=== PATIENT | male | born 1995 | race Caucasian/White ===

== ENCOUNTER 2017-02-25 21:11 | Emergency (ER) | payer BC ==
[~2017-02-25] VITALS: Ht 165.1 cm; Wt 66.0 kg
[2017-02-25 21:22] VITALS: BP 145/87; TEMP 36.6; Ht 165.1 cm; Wt 66.0 kg
[2017-02-25] MEDS ORDERED: MOME100A INH (21:40)
--- NOTE | 2017-02-25 22:19 | DIAGNOSTIC IMAGING REPORT ---
LEFT ANKLE 3 VIEWS CLINICAL HISTORY: Fall with left ankle injury. FINDINGS: 3 views of left ankle are obtained. No prior studies are available for comparison at the time of dictation. The skeletal structures are well mineralized. No fracture is seen. The ankle mortise is intact. There is no joint effusion. Mild soft tissue swelling is seen anteriorly. IMPRESSION: Mild soft tissues swelling with no radiographic evidence of left ankle fracture. Electronically signed by: Amado Hutton M.D. 02/25/2017 10:17 PM Dictated Date/Time: 02/25/2017 10:16 PM
--- NOTE | 2017-02-25 22:19 | DIAGNOSTIC IMAGING REPORT ---
LEFT FOOT 3 VIEWS CLINICAL HISTORY: Fall with left foot injury. FINDINGS: 3 views of left foot are obtained. No prior studies are available for comparison at the time of dictation. The skeletal structures are well mineralized. No fracture is seen. The joint spaces of the foot are well-maintained. Mild soft tissue swelling is noted along the dorsal aspect of the foot. IMPRESSION: Mild soft tissue swelling with no radiographic evidence of left foot fracture. Electronically signed by: Amado Hutton M.D. 02/25/2017 10:17 PM Dictated Date/Time: 02/25/2017 10:15 PM
[2017-02-25 22:45] VITALS: PULSE 75; O2SAT 100
--- NOTE | 2017-02-25 23:14 | EMERGENCY ROOM VISIT NOTE ---
ED Visit Note First contact with patient: 21:32 CHIEF COMPLAINT: Ankle pain HISTORY OF PRESENT ILLNESS: This 21-year-old male patient presents to the emergency department after sustaining an injury to the left ankle and foot with a twisting, inversion motion that occurred while running earlier this afternoon. The patient complains of pain along the outside of the ankle. The patient has mild pain of the foot. The patient rates the pain as dull and 6/ 10. The patient is not comfortably able to bear weight on the foot. Constant pain, worse with movement, weight bearing, and the dependent position. No knee pain, the patient is able to move their toes. No numbness or weakness of the foot, no laceration. The patient has not had a previous fracture to this ankle. The patient has taken ibuprofen for the pain. The patient denies any other injury. REVIEW OF SYSTEMS: A 6 system review of systems was completed with positives and pertinent negatives listed in the HPI. ALLERGIES: Penicillin MEDICATIONS: No chronic medication PMH: Otherwise healthy SOCIAL HISTORY: Student and lives locally PHYSICAL EXAM: Vital Signs: Reviewed Nurse's notes, vital signs stable. GENERAL : White male, no acute distress, but appears in pain, well-developed, well- nourished. MENTAL STATUS: Alert, oriented to person place and time, and cooperative. MUSCULOSKELETAL: The left ankle is swollen and tender over the lateral malleolus and anterior foot, but the skin is intact and there is no ligamentous instability. There is no fifth metatarsal tenderness. There is no tenderness over the rest of the foot. There is no calf or tibia/fibular tenderness. There is no visual deformity. The foot and toes are warm and well- perfused. Dorsalis pedis pulse 2+. Sensation to pain and light touch is intact. Capillary refill less than 2 seconds. LEFT ANKLE 3 VIEWS CLINICAL HISTORY: Fall with left ankle injury. FINDINGS: 3 views of left ankle are obtained. No prior studies are available for comparison at the time of dictation. The skeletal structures are well mineralized. No fracture is seen. The ankle mortise is intact. There is no joint effusion. Mild soft tissue swelling is seen anteriorly. IMPRESSION: Mild soft tissues swelling with no radiographic evidence of left ankle fracture. LEFT FOOT 3 VIEWS CLINICAL HISTORY: Fall with left foot injury. FINDINGS: 3 views of left foot are obtained. No prior studies are available for comparison at the time of dictation. The skeletal structures are well mineralized. No fracture is seen. The joint spaces of the foot are well-maintained. Mild soft tissue swelling is noted along the dorsal aspect of the foot. IMPRESSION: Mild soft tissue swelling with no radiographic evidence of left foot fracture. EMERGENCY DEPARTMENT COURSE: Physical exam and history were performed. Nursing notes and EMR were reviewed. The patient appears to have fallen and suffered injury to his left foot and ankle. X-rays were obtained and do not show evidence of fracture or dislocation. The patient will be treated conservatively with ibuprofen and Tylenol. He was given a gel ankle splint and crutches. He is to follow-up with orthopedics for ongoing or persisting symptoms. He was invited back to the ER with any new, worsening, or concerning complaints. Current/Historical Medications Scheduled PRN Mometasone Furoate-Formoterol (Dulera 100/5 Mcg), 2 PUFFS INH BID PRN for Colds Allergies Coded Allergies: Penicillins (Verified Allergy, Intermediate, Rash, 02/25/17) Vital Signs Date Time Temp Pulse Resp B/P Pulse Ox O2 Delivery O2 Flow Rate FiO2 02/25/17 22:45 75 16 100 02/25/17 21:22 36.6 86 18 145/87 99 Room Air Departure Information Impression Primary Impression: Injury of left ankle and foot Dispostion Home / Self-Care Condition FAIR Referrals Hugo Chowdary, DO Forms HOME CARE DOCUMENTATION FORM, IMPORTANT VISIT INFORMATION Patient Instructions Deanna MORRIS [facility] Additional Instructions You were seen and evaluated today on an emergency basis only. This is not a substitute for, or an effort to provide, complete comprehensive medical care. It is not possible to recognize and treat all injuries or illnesses in a single emergency department visit. For this reason it is recommended that you followup with Orthopedics, Dr. Contreras office, if symptoms persist over the next week. For baseline pain relief you may alternate ibuprofen and acetaminophen every 4 hours for pain control. Take 600 mg ibuprofen (Advil) and then 4 hours later take 1000 mg acetaminophen (Tylenol). Do not take more than 3000 mg acetaminophen in a single day. Use your gel ankle splint and crutches for the next 4-5 days and slowly advance activity as tolerated. If you have persistent discomfort please follow with orthopedics. You are welcome to return to the emergency department anytime with new, worsening, or concerning symptoms.
== END 2017-02-25 22:49 | disposition home or self-care (01) ==
LOC: C.EDB 21:12 → C.EDD 22:49
DX: S99.912A Unspecified injury of left ankle, initial encounter (principal); S99.922A Unspecified injury of left foot, initial encounter; X50.1XXA Overexertion from prolonged static or awkward postures, initial encounter; Y93.02 Activity, running; Y99.8 Other external cause status